=== PATIENT | female | born 1990 | race African-American/Black ===

== ENCOUNTER 2021-07-10 21:09 | Emergency (ER) | payer OTHER ==
[2021-07-10 22:12] VITALS: BP 123/75; PULSE 64; TEMP 97.9; BMI 43.8
[2021-07-10] MEDS ORDERED: ONDANSETRON 4 MG/2 ML VIAL IVPUSH ONE (22:58)
[2021-07-10] MEDS ORDERED: FAMOTIDINE 20 MG/50 ML IVPB 20 MG/50 ML MG IVPB ONE ×2 (22:58→23:18)
[2021-07-10] MEDS ORDERED: ACETAMINOPHEN 1000 MG/100 ML BAG IVPB ONE (22:58)
[2021-07-10] MEDS ORDERED: MAG HYDROX/AL HYDROX/SIMETH 30 ML UNIT-DOSE CUP PO ONE (22:58)
[2021-07-10] MEDS ORDERED: SODIUM CHLORIDE 1,000 ML IV STA (22:58)
[2021-07-10] MEDS ORDERED: ONDANSETRON 4 MG/2 ML VIAL ONE (23:18)
[2021-07-10] MEDS ORDERED: ACETAMINOPHEN INJECTION 100 ML IVPB ONE (23:18)
[2021-07-10] MEDS ORDERED: MAG HYDROX/AL HYDROX/SIMETH 30 ML UNIT-DOSE CUP ONE (23:18)
[2021-07-10 23:36] LABS: BASO % 0.6 % (0-2.0); EOS % 0.9 % (0-4.5); HEMATOCRIT 37.9 % (32.4-45.2); HEMOGLOBIN 12.6 GM/dL (10.7-15.3); LYMPH % 34.6 % (8-40); MCHC 33.2 g/dl (32.0-36.0); MEAN CELL VOLUME 87.2 fl (80-96); MEAN PLT VOLUME 6.8 fl (7.5-11.1); MONO % 9.3 % (3.8-10.2); NEUT % 54.6 % (42.8-82.8); PLATELET COUNT 356 10^3/uL (134-434); RBC 4.35 M/mm3 (3.60-5.2); RDW 13.1 % (11.6-15.6); WHITE BLOOD COUNT 5.9 K/mm3 (4.0-10.0)
[2021-07-11] LABS: ALBUMIN 3.6 g/dl (3.4-5.0); BLOOD UREA NITROGEN 7.5 mg/dL (7-18)
[2021-07-11 00:03] LABS: CREATININE 0.5 mg/dL (0.55-1.3)
[2021-07-11 00:05] LABS: BILIRUBIN,TOTAL 0.2 mg/dL (0.2-1); TOT PROT 6.6 g/dl (6.4-8.2)
[2021-07-11] MEDS ORDERED: IBUPROFEN 600 MG TABLET (FP) PO ONE (04:06)
[2021-07-11] MEDS ORDERED: ACETAMINOPHEN 325 MG TABLET (FP) PO ONE (04:06)
== END 2021-07-11 04:52 | disposition home or self-care (01) ==
LOC: JER 21:09
PROC: 3E033NZ Introduction of Analgesics, Hypnotics, Sedatives into Peripheral Vein, Percutaneous Approach (ICD-10-PCS; principal; 2021-07-10)
PROC: 3E033GC Introduction of Other Therapeutic Substance into Peripheral Vein, Percutaneous Approach (ICD-10-PCS; 2021-07-10)
PROC: 3E033GC Introduction of Other Therapeutic Substance into Peripheral Vein, Percutaneous Approach (ICD-10-PCS; 2021-07-10)
PROC: 3E0337Z Introduction of Electrolytic and Water Balance Substance into Peripheral Vein, Percutaneous Approach (ICD-10-PCS; 2021-07-10)
DX: R10.13 Epigastric pain (principal)
CPT/HCPCS: 36415; 74177-TC; 76705-TC; 80053; 83690; 84703; 85025; 99285-25; J0131; Q9967